=== PATIENT | male | born 1985 | race Asian ===

== ENCOUNTER → 2017-04-12 | Outpatient (CLI) | payer OTHER ==
--- NOTE | ~2017-04-12 | ST ---
Unit #: [id number] #: [id number] Patient: LIBAN YOST [id number] [address] [address] [id number] O MR#: [id number] NAME: LIBAN YOST : 1985 SEX: M STUDY DATE/TIME: 04/12/2017 UNIT: [facility] ROOM: STUDY DESCRIPTION: Exercise stress test Attending Physician: Tracie Austin M.D. Referring Physician: Tracei Austin M.D. Primary Care Physician: Emmett Balck M.D. CARDIOLOGY REPORT PROCEDURE PERFORMED Exercise Cardiolite stress test. PROCEDURE BASELINE EKG: Normal sinus rhythm with ventricular rate 66 beats per minute, slow R wave progression, T wave inversion in lead III only. The patient walked on the treadmill for 12 minutes utilizing the Steve protocol, achieving a workload of 13.7 METS. He achieved 87% of the maximum target heart rate at 166 beats per minute with a maximum blood pressure response of 180/90 mmHg. EKG during the test was equivocal to baseline. It did show in lead III the T wave inversion reversed. IMPRESSION 1. Functional class 3 with a workload of 13.7 METS. 2. Patient walked for 12 minutes achieving 87% of maximum target heart rate at 166 beats per minute with a blood pressure response of 180/90 mmHg. 3. EKG during the test was equivocal to baseline. No acute ischemic changes. 4. The patient had no complaints of chest pain, palpitations or dizziness. Had increased shortness of breath and fatigue, which resolved in recovery phase. 5. It was noted the patient's blood pressure decreased down to 170/88 at the end of recovery phase. 6. Cardiolite was injected at maximum target heart rate. Radionuclide test pending. Please correlate with nuclear images. Dictated by... Leslye Garcia A.P.R.NAisha for Lynn Jaramillo/shad TD: 04/12/2017 12:00 JOB #: [id number] Unit #: [id number] #: [id number] Patient: LIBAN YOST CARDIOLOGY REPORT Page 1 of 1 X Leslye Garcia APRN CARDIOLOGY REPORT
--- NOTE | ~2017-04-12 | TH ---
Unit #: [id number] #: [id number] Patient: LIBAN YOST [id number] [address] [address] [id number] O MR#: [id number] NAME: LIBAN YOST : 1985 SEX: M STUDY DATE/TIME: UNIT: [facility] ROOM: STUDY DESCRIPTION: Nuclear Study Attending Physician: Tracie Austin M.D. Referring Physician: Tracie Austin M.D. Primary Care Physician: Emmett Black M.D. CARDIOLOGY REPORT EXAM Exercise Cardiolite Stress Test - Nuclear Portion PROCEDURE Using technetium 99m labeled Cardiolite, rest and stress SPECT images were obtained. Multiple SPECT images were obtained in various views including horizontal and vertical long axis and short axis views of the left ventricle. Images were obtained by gated SPECT method. Patient was administered 10.69 mCi of Cardiolite at rest. Patient was administered 34.0 mCi of Cardiolite at peak exercise. Total exercise time is 12 minutes. On the stress images, there is normal perfusion noted. The rest images show normal perfusion. Comparing rest and stress images, there is no stress-induced ischemia noted. The left ventricular ejection fraction is calculated to be 55%. There is no focal wall motion abnormality seen. CONCLUSION 1. No stress-induced ischemia noted. 2. The left ventricular ejection fraction is calculated to be 55%. 3. There is no focal wall motion abnormality seen. 4. Normal exercise Cardiolite stress test. Dictated by... Lynn Jaramillo TD: 04/13/2017 05:29 JOB #: [id number] Unit #: [id number] #: [id number] Patient: LIBAN YOST CARDIOLOGY REPORT Page 1 of 1 X Tracie Austin MD <ELECTRONICALLY SIGNED> 05/13/17 1524 CARDIOLOGY REPORT
== END | disposition home or self-care (01) ==
LOC: CNUC 06:27
DX: R07.9 Chest pain, unspecified (principal); R00.0 Tachycardia, unspecified
CPT/HCPCS: 78452; 93017; A9500